=== PATIENT | female | born 1975 | race Caucasian/White ===

== ENCOUNTER 2016-08-18 14:13 | Emergency (ER) | payer MEDICAID ==
[~2016-08-18] VITALS: Wt 44.0 kg
[~2016-08-18 14:13] MED LIST: BEN25 PO; BEN50 PO; CETI-240 PO; EPIN0.3P4 INJ; FAMO-18 PO; HYDR-3010 PO; HYDR-845 PO; PRED20TA PO
--- NOTE | 2016-08-18 16:53 | ERD ---
ER Documentation Chief Complaint Date/Time DATE: 08/18/16 TIME: 16:51 Chief Complaint VAG BLEEDING FOR 1 MO. WORSE LAST 2 DAYS. GEN WEAKNESS HPI 40-year-old female otherwise healthy comes in with vaginal bleeding on and off for months now. It started with her menses which usually last only for 3 days, it started a month ago then she had bleeding for 3 days that resolved for about a week then she has been bleeding again for the last almost 3 weeks now. Over the last 2 days it has become heavier, she has used 3 pads yesterday and 2 pads today and she denies any fevers or chills. ROS All systems reviewed and are negative except as per history of present illness. Medications Home Meds Active Scripts Medroxyprogesterone Acetate* (Provera*) 5 Mg Tablet, 5 MG PO DAILY, #7 TAB Prov:WILLIAN HAWKINS PA-C 08/18/16 Hydroxyzine Hcl* (Atarax*) 50 Mg Tab, 50 MG PO Q8H Y for ITCHING, #20 TAB Prov:ZORA CERVANTES NP 11/03/15 Hydroxyzine Hcl* (Hydroxyzine Hcl*) 10 Mg Tablet, 10 MG PO Q6H Y for ITCHING, # 30 TAB Prov:ZLEDA DE ANDA PA-C 10/27/15 Prednisone* (Prednisone*) 20 Mg Tab, 40 MG PO DAILY for 4 Days, TAB Prov:ZELDA DE ANDA PA-C 10/27/15 Diphenhydramine Hcl* (Benadryl*) 50 Mg Cap, 50 MG PO Q6 Y for rash, #30 CAP Prov:ZELDA DE ANDA PA-C 10/27/15 Epinephrine (Epipen 2-Randy) 0.3 Mg/0.3 Ml Pen.injctr, 1 EA INJ ONCE Y for ALLERGIC REACTION, #1 EA Prov:SHANIA LE DO 10/25/15 Prednisone* (Prednisone*) 20 Mg Tab, 20 MG PO DAILY for 7 Days, TAB Prov:SHANIA LE DO 10/25/15 Famotidine* (Pepcid*) 20 Mg Tablet, 20 MG PO BID for 7 Days, TAB Prov:SHANIA LE DO 10/25/15 Diphenhydramine Hcl* (Benadryl*) 25 Mg Cap, 25 MG PO Q6 for ALLERGIC REACTION, # 30 CAP Prov:SHANIA LE DO 10/25/15 Reported Medications Cetirizine Hcl* (Cetirizine Hcl*) 10 Mg Tablet, 10 MG PO DAILY, #30 TAB 10/25/15 Allergies Allergies: Coded Allergies: No Known Allergies (Verified Allergy, Mild, 11/03/15) No Known Drug Allergies (Verified Allergy, Mild, 11/03/15) PMhx/Soc History of Surgery: Yes (CHOLECYSTECTOMY, TUBAL LIGATION) Anesthesia Reaction: No Hx Neurological Disorder: No Hx Respiratory Disorders: No Hx Cardiac Disorders: No Hx Psychiatric Problems: No Hx Miscellaneous Medical Probl: No Hx Alcohol Use: No Hx Substance Use: No Hx Tobacco Use: No Physical Exam Vitals Vital Signs Date Time Temp Pulse Resp B/P Pulse Ox O2 Delivery O2 Flow Rate FiO2 08/18/16 14:24 98.8 62 21 119/68 98 Physical Exam General: Well-developed, well-nourished. The patient appears in no acute distress. HEENT: Head is normocephalic, atraumatic. No scleral icterus. Neck: Supple. Nontender. Lungs: Clear to auscultation. Normal air movement. Heart: Regular rate and rhythm. S1 and S2 are normal. No murmurs, gallops, or rubs. Abdomen: Soft, nontender, nondistended. Bowel sounds are normoactive. Extremities: No clubbing or cyanosis. Normal pulses. Moving extremities x 4. No weakness. Neurologic: Alert and oriented 3. No focal deficits. Skin: Normal turgor. No rash or lesions. Result Diagram: 08/18/16 1655 08/18/16 1655 Results 24 hrs Laboratory Tests Test 08/18/16 16:55 Anion Gap 17 Basophils # 0.010^3/ul Basophils % 0.6% Blood Urea Nitrogen 16mg/dl Calcium Level 8.9mg/dl Carbon Dioxide Level 24mmol/L Chloride Level 104mmol/L Creatinine 0.58mg/dl Eosinophils # 0.510^3/ul Eosinophils % 8.0% Glucose Level 88mg/dl Hematocrit 42.8% Hemoglobin 14.5g/dl Lymphocytes # 2.210^3/ul Lymphocytes % 33.4% Mean Corpuscular Hemoglobin 31.4pg Mean Corpuscular Hemoglobin Concent 33.9g/dl Mean Corpuscular Volume 92.4fl Mean Platelet Volume 9.6fl Monocytes # 0.510^3/ul Monocytes % 7.4% Neutrophils # 3.310^3/ul Neutrophils % 50.6% Nucleated Red Blood Cells # 0.010^3/ul Nucleated Red Blood Cells % 0.0/100WBC Platelet Count 61496^3/UL Potassium Level 4.0mmol/L Red Blood Count 4.6410^6/ul Red Cell Distribution Width 12.8% Sodium Level 141mmol/L Urine Bacteria FEW Urine Bilirubin NEGATIVE Urine Clarity SLIGHTLY CLOUDY Urine Color LT. YELLOW Urine Epithelial Cells MODERATE Urine Glucose NEGATIVE% Urine Hemoglobin 3+ Urine Ketones TRACE Urine Leukocyte Esterase NEGATIVE Urine Microscopic RBC >200/HPF Urine Microscopic WBC 2-5/HPF Urine Nitrite NEGATIVE Urine Specific Dexter 1.025 Urine Total Protein NEGATIVE Urine Urobilinogen 0.2 E.U./dL Urine pH 6.0 White Blood Count 6.610^3/ul Current Medications Medications (Trade) Dose Ordered Sig/Lexis Route PRN Reason Start Time Stop Time Status Last Admin Dose Admin Acetaminophen (Tylenol Tab) 650 mg ONCE ONCE PO 08/18/16 17:00 08/18/16 17:01 DC 08/18/16 16:57 PROCEDURE: US Pelvis. CLINICAL INDICATION: Pelvic pain. Vaginal bleeding for 1 month TECHNIQUE: Multiple sonographic images of the pelvis were obtained utilizing a transabdominal and endovaginal technique. The images were reviewed on a PACS workstation. COMPARISON: None available FINDINGS: Uterus: Normal in size, contour and echogenicity with no evidence for myometrial masses. Size is estimated at 7.2 x 4.9 x 3.4 cm. Cervix: No abnormalities of significance are seen. Endometrium: Normal in thickness; 4.2 mm. Right ovary / adnexa: Normal in size estimated at 2.9 x 2.6 x 1.5 cm. No evidence for masses, normal blood flow on Doppler interrogation. Simple anechoic ovarian cyst is measured at 2.6 x 2.2 x 0.6 cm. A second cyst with internal hemorrhage or debris measures 1.9 x 1.4 x 0.8 cm. Left ovary/adnexa: Normal in size estimated at 2.2 x 1.6 x 1.1 cm. No evidence for solid masses, normal blood flow on Doppler interrogation. Cul-de-sac: A small cyst is measured at 1.3 x 0.9 cm, no free fluid is present. RPTAT:HJJR IMPRESSION: 1. Sonographically normal uterus and endometrium. 2. Right-sided ovarian cysts, the largest 2.6 cm in greatest dimension with a second smaller hemorrhagic cyst measuring 1.9 cm. 3. Sonographically normal ovary with a small 1.3 cm cyst in the cul-de-sac likely paraovarian. 4. No evidence of free fluid. Physician Swati Date Time Electronically viewed and signed by Yaron Singh Physician on 08/18/2016 18:21 Procedures/MDM ED course: She was given Tylenol for pain. Blood and urine were obtained. 40-year-old female comes in with an abnormal vaginal bleeding for a month, workup included labs as well as a urine and an ultrasound. She does have an ovarian cyst, no abnormal masses seen on the ultrasound. Blood work was unremarkable, and she does not have anemia. No indication for transfusion at this time. I should be given a short course of Provera and given a list of OB/ [facility] clinics to follow-up outpatient. Departure Diagnosis: Primary Impression: Vaginal bleeding Condition: WILLIAN De León PA-C Aug 18, 2016 16:53
[2016-08-18] MEDS ORDERED: ACETAMINOPHEN 325 MG TAB PO ONE (17:00)
[2016-08-18 17:06] LABS: ADD UMIC YES; URINE BILIRUBIN (Dip) NEGATIVE (NEGATIVE); URINE BLOOD (Dip) 3+ (NEGATIVE); URINE COLOR LT. YELLOW (YELLOW); URINE GLUCOSE (Dip) NEGATIVE (NEGATIVE); URINE KETONES (Dip) TRACE (NEGATIVE); URINE LEUKOCYTE ESTERASE (Dip) NEGATIVE (NEGATIVE); URINE NITRITE (Dip) NEGATIVE (NEGATIVE); URINE TOTAL PROTEIN (Dip) NEGATIVE (NEGATIVE); URINE UROBILINOGEN (Dip) 0.2 E.U./dL (0.1-1.0)
[2016-08-18 17:13] LABS: BASOPHILS % 0.6 % (0.0-2.0); EOSINOPHILS # 0.5 10^3/ul (0.0-0.5); HEMATOCRIT 42.8 % (37.0-47.0); HEMOGLOBIN 14.5 g/dl (12.0-16.0); LYMPHOCYTES # 2.2 10^3/ul (0.8-2.9); LYMPHOCYTES % 33.4 % (15.0-51.0); MEAN CORPUSCULAR HEMOGLOBIN 31.4 pg (29.0-33.0); MEAN CORPUSCULAR HGB CONC 33.9 g/dl (32.0-37.0); MEAN CORPUSCULAR VOLUME 92.4 fl (82.0-101.0); MEAN PLATELET VOLUME 9.6 fl (7.4-10.4); MONOCYTE # 0.5 10^3/ul (0.3-0.9); MONOCYTES % 7.4 % (0.0-11.0); NEUTROPHIL # 3.3 10^3/ul (1.6-7.5); NEUTROPHILS % 50.6 % (39.0-77.0); PLATELET COUNT 203 10^3/UL (140-440); RED BLOOD COUNT 4.64 10^6/ul (4.20-5.40); RED CELL DISTRIBUTION WIDTH 12.8 % (11.5-14.5); UNCORRECTED WBC 6.6 10^3/ul (4.8-10.8); WHITE BLOOD COUNT 6.6 10^3/ul (4.8-10.8)
[2016-08-18 17:14] LABS: CONDITION 1
[2016-08-18 17:28] LABS: CREATININE 0.58 mg/dl (0.44-1.00)
[2016-08-18 17:29] LABS: CALCIUM 8.9 mg/dl (8.4-10.2)
[2016-08-18 17:55] LABS: BACTERIA,URINE FEW; URINE RBCS >200 /HPF (0)
--- NOTE | 2016-08-18 18:21 | RADRPT ---
PROCEDURE: US Pelvis. CLINICAL INDICATION: Pelvic pain. Vaginal bleeding for 1 month TECHNIQUE: Multiple sonographic images of the pelvis were obtained utilizing a transabdominal and endovaginal technique. The images were reviewed on a PACS workstation. COMPARISON: None available FINDINGS: Uterus: Normal in size, contour and echogenicity with no evidence for myometrial masses. Size is est imated at 7.2 x 4.9 x 3.4 cm. Cervix: No abnormalities of significance are seen. Endometrium: Normal in thickness; 4.2 mm. Right ovary / adnexa: Normal in size estimated at 2.9 x 2.6 x 1.5 cm. No evidence for masses, norm al blood flow on Doppler interrogation. Simple anechoic ovarian cyst is measured at 2.6 x 2.2 x 0.6 cm. A second cyst with internal hemorrhage or debris measures 1.9 x 1.4 x 0.8 cm. Left ovary/adnexa: Normal in size estimated at 2.2 x 1.6 x 1.1 cm. No evidence for solid masses, no rmal blood flow on Doppler interrogation. Cul-de-sac: A small cyst is measured at 1.3 x 0.9 cm, no free fluid is present. RPTAT:HJJR IMPRESSION: 1. Sonographically normal uterus and endometrium. 2. Right-sided ovarian cysts, the largest 2.6 cm in greatest dimension with a second smaller hemorr hagic cyst measuring 1.9 cm. 3. Sonographically normal ovary with a small 1.3 cm cyst in the cul-de-sac likely paraovarian. 4. No evidence of free fluid. Physician Swati Date Time Electronically viewed and signed by Physician Swati on 08/18/2016 18:21 JR/
[2016-08-18] MEDS ORDERED: MEDR5TAB PO (18:29)
[2016-08-18 18:54] VITALS: BP 118/67; PULSE 75; RESP 18; TEMP 98.8
== END 2016-08-18 18:50 | disposition home or self-care (01) ==
LOC: FTE 14:13
DX: N93.9 Abnormal uterine and vaginal bleeding, unspecified (principal); R10.2 Pelvic and perineal pain
CPT/HCPCS: 36415; 76830; 76856; 80048; 81001; 85025; Z7502; Z7610; 81003

== ENCOUNTER 2017-11-06 12:16 | Emergency (ER) | END 2017-11-06 15:55 | disposition home or self-care (01) ==